=== PATIENT | male | born 1990 | race Caucasian/White ===

== ENCOUNTER 2021-12-31 16:02 | Observation (INO) | payer OTHER, SELFPAY ==
--- NOTE | ~2021-12-31 | CT_ITS ---
EXAMINATION: CT ABDOMEN AND PELVIS WITH CONTRAST CLINICAL INFORMATION: Diffuse abdominal pain. COMPARISON: None TECHNIQUE: Multidetector volumetric images were obtained from the superior aspect of the liver through the pubic symphysis following administration 100 mL of Omnipaque 350 intravenous contrast. Sagittal and coronal reformatted images were obtained on the technologist's workstation. Oral Contrast: No. This CT examination was performed using dose optimization techniques as appropriate, variously including the following: *Automated exposure control. *Adjustment of mA and/or kV according to patient size (this includes techniques or standardized protocols for targeted exams where dose is matched to indication/reason for exam; i.e. extremities or head). *Use of iterative reconstruction technique. DLP: 732 mGy-cm FINDINGS: LUNG BASES: The visualized lung bases are unremarkable. LIVER, GALLBLADDER, AND BILIARY TREE: The liver is normal in size, shape, and attenuation. No focal hepatic lesion or biliary ductal dilatation is present. The gallbladder is unremarkable with no evidence of radiopaque gallstones, gallbladder wall thickening, or obvious pericholecystic inflammatory changes. PANCREAS: Unremarkable. SPLEEN: Borderline enlarged, measuring 14.2 cm in diameter. ADRENAL GLANDS: Unremarkable. KIDNEYS AND URETERS: The kidneys are normal in size, shape, and attenuation. No hydronephrosis, hydroureter, or calculi seen. No perinephric stranding. BLADDER: Unremarkable. GASTROINTESTINAL TRACT: The appendix is dilated to a diameter of 1.8 cm with surrounding periappendiceal fat stranding, most consistent with acute appendicitis. There is adjacent wall thickening at the cecum, likely reactive in nature. No intraperitoneal free air or free fluid. No surrounding abscess. Stomach, small bowel, and colon are normal in caliber. ABDOMINAL WALL: No significant hernia is appreciated. LYMPH NODES: Normal. VASCULAR: Unremarkable. PELVIC VISCERA: Dystrophic central calcifications. No prostatomegaly. OSSEOUS STRUCTURES: Bilateral L5 pars defects, chronic. Minimal grade 1 anterolisthesis of L5 on S1. No acute osseous abnormalities. CT/CT abdomen pelvis w IV con IMPRESSION: 1. Acute uncomplicated appendicitis. 2. Borderline splenomegaly, potentially related to body habitus. This critical result was discussed by telephone with Thelma Love NP on 12/31/2021 at 6:45 PM
[2021-12-31 16:15] VITALS: BP 151/100; PULSE 81; RESP 18; TEMP 36.7; O2SAT 99; BMI 30.3
--- NOTE | 2021-12-31 16:29 | ED.ABDPAIN ---
HPI - Abdominal Pain General Chief Complaint: Abdominal Pain Stated Complaint: Abd pain Time Seen by Provider: 12/31/21 16:19 Source: patient Mode of arrival: ambulatory Limitations: no limitations History of Present Illness HPI narrative: 31 yo male healthy here with diffuse abdominal pain described as waves of pain and dull pain which is constant since last evening with nausea, chills. No vomiting, diarrhea. Last BM 2 days ago. Took miralax which he thinks made him feel worse. H/o inguinal hernia repair. Related Data Allergies Allergy/AdvReac Type Severity Reaction Status Date / Time Sulfa (Sulfonamide AdvReac Rash Verified 12/31/21 16:19 Antibiotics) Review of Systems Review of Systems Yes all other systems are reviewed and are negative Constitutional: Reports no additional constitutional complaints, Denies body ache(s), Reports chills, Denies fever(s), Denies headache(s) and Denies weakness Eyes: Reports no additional eye complaints and Denies change in vision Reports system reviewed and no additional complaints, except as documented, Denies dizziness, Denies headache(s), Denies nasal congestion, Denies nasal discharge and Denies neck pain Cardiovascular: Reports no additional cardiovascular complaints, Denies chest pain, Denies leg edema and Denies dyspnea Respiratory: Reports no additional respiratory complaints, Denies cough and Denies dyspnea Gastrointestinal: Reports no additional gastrointestinal complaints, Reports abdominal pain, Denies diarrhea, Reports nausea and Denies vomiting Genitourinary: Denies urinary incontinence Musculoskeletal: Reports no additional musculoskeletal complaints, Denies back pain, Denies arthralgias, Denies joint swelling, Denies neck pain, Denies numbness and Denies tingling Skin/Breast: Reports system reviewed and no additional complaints, except as docu and Denies rash Reports system reviewed and no additional complaints, except as documented, Denies dizziness, Denies headache(s), Denies numbness, Denies tingling and Denies weakness [facility] Past Medical History Attestation statement: The following information was validated with the patient. Source: old records reviewed and nursing notes reviewed Social History Social History Advance Directives: No Advance Directives Information Provided: No Physical Exam ED Vital Signs: Vital Signs - 24 hr 12/31/21 16:15 Temperature 98.0 F Pulse Rate 81 Respiratory Rate 18 Blood Pressure 151/100 H Pulse Oximetry 99 Oxygen Delivery Method Room Air BMI result Body Mass Index 30.3 Const General: cooperative, healthy appearing and comfortable Orientation/consciousness: patient oriented x3 Limitations: no limitations HENMT Head: Yes normal to inspection Ears: hearing grossly normal bilaterally Eyes General: appearance normal, both eyes and all related structures Pupils: Equal, round and reactive pupils present Neck Neck: Yes normal visual inspection, Yes full ROM and Yes no lymphadenopathy Chest Chest palpation & inspection: normal inspection of the chest Resp Effort & Inspection: normal respiratory effort Auscultation: clear to auscultation bilaterally Cardio Rate: regular rate Rhythm: regular rhythm Peripheral pulses: Peripheral pulses 2+ throughout GI Inspection: Yes normal to inspection Palpation (GI): Tenderness to palpation present (GI) (diffuse AP w/ rebound in RLQ) and Guarding due to palpation present (GI) Auscultation: normal bowel sounds General: Yes no CVA tenderness Back/Spine/Pelvis Back: no CVA tenderness Thoracic/Lumbar Spine: thoracic and lumbar spine normal to inspection Skin General skin exam: no rashes or lesions noted Neuro General: patient oriented x3 and moves all extremities Cranial nerves: Yes Equal, round and reactive pupils present Cognition (Neuro): normal cognition Gait exam (Neuro): Normal gait present Extrem General: Yes normal to inspection Course Course Course Narrative: 1849-Call from radiology. CT c/w with acute appendicitis. At this time infection suspected. Blood cultures/lactic acid ordered. Antibiotics ordered. Last PO was sips of water 3pm. Had OJ at noon. Last food prior to midnight =t. Reevaluation(s) Reevaluation #1: 1900-Spoke to Dr Stewart from general surgery who accepted admission. Keep patient NPO until OR time determined. MDM - Abdominal Pain MDM Narrative Medical decision making narrative: 31 yo male here with diffuse AP, nausea, chills since last evening. Will need labs, UA, CT, COVID screen. Differential Diagnosis Differential diagnosis: Likely acute appendicitis, diverticulitis and gastroenteritis Medical Records Attestation: I reviewed the patient's medical records. Lab Data Attestation: I reviewed the patient's lab results. Result diagrams: 12/31/21 16:45 12/31/21 16:45 Labs: Lab Results 12/31/21 12/31/21 12/31/21 Range/Units 16:40 16:45 16:45 WBC 13.2 H (4.8-10.8) X10*3/uL RBC 5.14 (4.60-5.80) X10*6/uL Hgb 16.4 (14.0-18.0) g/dl Hct 44.5 (42.0-52.0) % MCV 86.6 (80.0-98.0) fL MCH 31.9 (27.0-33.0) pg MCHC 36.9 H (31.0-36.0) g/dl RDW 11.4 (11.0-16.0) % Plt Count 226 (160-400) X10*3/uL MPV 9.6 (9.4-12.4) fL Immature Gran % (Auto) 0.4 (0.0-0.4) % Neut % (Auto) 85.2 H (45-73) % Lymph % (Auto) 7.3 L (20-40) % [place] % (Auto) 5.8 (2-11) % Eos % (Auto) 0.8 (0-4) % Baso % (Auto) 0.5 (0-2) % Lymph # (Auto) 1.0 L (1.2-4.9) X10*3/uL [place] # (Auto) 0.8 (0.1-1.2) X10*3/uL Eos # (Auto) 0.1 (0.0-0.4) X10*3/uL Baso # (Auto) 0.1 (0.0-0.2) X10*3/uL Abs Immat Gran (auto) 0.05 H (0.00-0.03) X10*3/uL Absolute Neuts (auto) 11.3 H (2.0-8.3) x10*3/uL Absolute Nucleated RBC 0.000 (0.0-0.012) X10*3/uL Nucleated RBC % (auto) 0.0 (0.0-0.2) /100WBC Sodium 139 (135-145) mmol/L Potassium 3.6 (3.3-5.1) mmol/L Chloride 100 (96-108) mmol/L Carbon Dioxide 26 (22-29) mmol/L Anion Gap 17 (12-20) BUN 12 (9-16) mg/dL Creatinine 0.83 (0.5-1.4) mg/dL Estim Creat Clear Calc 163.5 Estimated GFR > 60 Random Glucose 104 (60-115) mg/dL Calcium 9.3 (8.4-10.2) mg/dL Total Bilirubin 1.5 H (0.0-1.0) mg/dL Direct Bilirubin 0.5 (0.0-0.5) mg/dL AST 37 (5-37) U/L ALT 78 H (0-40) U/L Alkaline Phosphatase 65 (39-117) U/L Total Protein 7.8 (6.5-8.0) g/dL Albumin 5.0 (3.5-5.0) g/dL Lipase 17 (8-78) U/L Urine Color Urine Appearance Urine pH (5.0-9.0) Ur Specific [place] (1.005-1.025) Urine Protein (Neg-Trace) mg/dL Urine Glucose (UA) (Negative) mg/dL Urine Ketones (Negative) mg/dL Urine Blood (Negative) Urine Nitrite (Negative) Ur Leukocyte Esterase (Negative) Urine RBC (0-2) /HPF Urine WBC (0-5) /HPF Ur Squamous Epith Cells (0-2) /HPF Urine Bacteria (None Seen) Hyaline Casts (0-2) /LPF COVID-19 (SHAY) Negative (Negative) COVID-19 Clin Com See Note 12/31/21 Range/Units 18:17 WBC (4.8-10.8) X10*3/uL RBC (4.60-5.80) X10*6/uL Hgb (14.0-18.0) g/dl Hct (42.0-52.0) % MCV (80.0-98.0) fL MCH (27.0-33.0) pg MCHC (31.0-36.0) g/dl RDW (11.0-16.0) % Plt Count (160-400) X10*3/uL MPV (9.4-12.4) fL Immature Gran % (Auto) (0.0-0.4) % Neut % (Auto) (45-73) % Lymph % (Auto) (20-40) % [place] % (Auto) (2-11) % Eos % (Auto) (0-4) % Baso % (Auto) (0-2) % Lymph # (Auto) (1.2-4.9) X10*3/uL [place] # (Auto) (0.1-1.2) X10*3/uL Eos # (Auto) (0.0-0.4) X10*3/uL Baso # (Auto) (0.0-0.2) X10*3/uL Abs Immat Gran (auto) (0.00-0.03) X10*3/uL Absolute Neuts (auto) (2.0-8.3) x10*3/uL Absolute Nucleated RBC (0.0-0.012) X10*3/uL Nucleated RBC % (auto) (0.0-0.2) /100WBC Sodium (135-145) mmol/L Potassium (3.3-5.1) mmol/L Chloride (96-108) mmol/L Carbon Dioxide (22-29) mmol/L Anion Gap (12-20) BUN (9-16) mg/dL Creatinine (0.5-1.4) mg/dL Estim Creat Clear Calc Estimated GFR Random Glucose (60-115) mg/dL Calcium (8.4-10.2) mg/dL Total Bilirubin (0.0-1.0) mg/dL Direct Bilirubin (0.0-0.5) mg/dL AST (5-37) U/L ALT (0-40) U/L Alkaline Phosphatase (39-117) U/L Total Protein (6.5-8.0) g/dL Albumin (3.5-5.0) g/dL Lipase (8-78) U/L Urine Color Yellow Urine Appearance Clear Urine pH 7.5 (5.0-9.0) Ur Specific [place] >= 1.030 H (1.005-1.025) Urine Protein Negative (Neg-Trace) mg/dL Urine Glucose (UA) Negative (Negative) mg/dL Urine Ketones Negative (Negative) mg/dL Urine Blood Negative (Negative) Urine Nitrite Negative (Negative) Ur Leukocyte Esterase Trace H (Negative) Urine RBC 0-2 (0-2) /HPF Urine WBC 0-5 (0-5) /HPF Ur Squamous Epith Cells 0-2 (0-2) /HPF Urine Bacteria None Seen (None Seen) Hyaline Casts 0-2 (0-2) /LPF COVID-19 (SHAY) (Negative) COVID-19 Clin Com Imaging Data CT scan - abdomen: Attestation: I personally reviewed and interpreted this imaging study as follows: Radiologist's impression: FINDINGS: LUNG BASES: The visualized lung bases are unremarkable.? LIVER, GALLBLADDER, AND BILIARY TREE: The liver is normal in size, shape, and attenuation. No focal hepatic lesion or biliary ductal dilatation is present. The gallbladder is unremarkable with no evidence of radiopaque gallstones, gallbladder wall thickening, or obvious pericholecystic inflammatory changes.? PANCREAS: Unremarkable.? SPLEEN: Borderline enlarged, measuring 14.2 cm in diameter.? ADRENAL GLANDS: Unremarkable.? KIDNEYS AND URETERS: The kidneys are normal in size, shape, and attenuation. No hydronephrosis, hydroureter, or calculi seen. No perinephric stranding. ? BLADDER: Unremarkable.? GASTROINTESTINAL TRACT: The appendix is dilated to a diameter of 1.8 cm with surrounding periappendiceal fat stranding, most consistent with acute appendicitis. There is adjacent wall thickening at the cecum, likely reactive in nature. No intraperitoneal free air or free fluid. No surrounding abscess. Stomach, small bowel, and colon are normal in caliber.? ABDOMINAL WALL: No significant hernia is appreciated.? LYMPH NODES: Normal. VASCULAR: Unremarkable. PELVIC VISCERA: Dystrophic central calcifications. No prostatomegaly.? OSSEOUS STRUCTURES: Bilateral L5 pars defects, chronic. Minimal grade 1 anterolisthesis of L5 on S1. No acute osseous abnormalities. CT/CT abdomen pelvis w IV con IMPRESSION: 1. Acute uncomplicated appendicitis. ? 2. Borderline splenomegaly, potentially related to body habitus. ? This critical result was discussed by telephone with Thelma Love NP on 12/31/2021 at 6:45 PM Discharge Plan Discharge Clinical Impression: Acute appendicitis Patient Disposition: Admitted As Inpatient
[2021-12-31] MEDS: Ketorolac Tromethamine 30 MG/ML VIAL IVPUSH (16:51)
[2021-12-31] MEDS: 0.9 % Sodium Chloride 1,000 ML 999 ML IV (16:51)
[2021-12-31] MEDS: ondansetron HCL 4 MG/2 ML VIAL IVPUSH (16:52)
[2021-12-31 16:53] LABS: MANUAL DIFF FLAG NO
[2021-12-31 16:55] LABS: Basophils Absolute Auto 0.1 X10*3/uL (0.0-0.2); Basophils Percent Auto 0.5 % (0-2); Eosinophils Absolute Auto 0.1 X10*3/uL (0.0-0.4); Eosinophils Percent Auto 0.8 % (0-4); Hematocrit 44.5 % (42.0-52.0); Hemoglobin 16.4 g/dl (14.0-18.0); Imm Gran Abs Auto 0.05 X10*3/uL (0.00-0.03); Imm Gran Pct Auto 0.4 % (0.0-0.4); Lymphocytes Percent Auto 7.3 % (20-40); Mean Corpuscular HGB Conc 36.9 g/dl (31.0-36.0); Mean Corpuscular Hemoglobin 31.9 pg (27.0-33.0); Mean Corpuscular Volume 86.6 fL (80.0-98.0); Mean Platelet Volume 9.6 fL (9.4-12.4); Monocytes Absolute Auto 0.8 X10*3/uL (0.1-1.2); Monocytes Percent Auto 5.8 % (2-11); Neutrophils Absolute Auto 11.3 x10*3/uL (2.0-8.3); Neutrophils Percent Auto 85.2 % (45-73); Platelet Count 226 X10*3/uL (160-400); Red Blood Count 5.14 X10*6/uL (4.60-5.80); Red Cell Distribution Width 11.4 % (11.0-16.0); White Blood Count 13.2 X10*3/uL (4.8-10.8)
[2021-12-31 17:07] LABS: COVID-19 Test Negative (Negative)
[2021-12-31 17:12] LABS: Alanine Aminotransferase 78 U/L (0-40); Alkaline Phosphatase 65 U/L (39-117); Anion Gap 17 (12-20); Aspartate Amino Transferase 37 U/L (5-37); Bilirubin Direct 0.5 mg/dL (0.0-0.5); Bilirubin Total 1.5 mg/dL (0.0-1.0); Blood Urea Nitrogen 12 mg/dL (9-16); Calcium 9.3 mg/dL (8.4-10.2); Carbon Dioxide 26 mmol/L (22-29); Chloride 100 mmol/L (96-108); Creatinine Clr Calc Pharmacy 163.5; Estimated Glomerular Filt Rate > 60; Glucose Random 104 mg/dL (60-115); Lipase 17 U/L (8-78); Potassium 3.6 mmol/L (3.3-5.1); Sodium 139 mmol/L (135-145); Total Protein 7.8 g/dL (6.5-8.0)
[2021-12-31] MEDS: iohexoL 350 MG/ML 100 ML INFUS..BTL IV (17:39)
--- NOTE | 2021-12-31 18:15 | PC.NURSE ---
OOB to BR. Reports improvement in pain
[2021-12-31 18:27] LABS: Appearance Urine Clear; Color Urine Yellow; Glucose Urine UA Negative (Negative); Leukocyte Esterase Urine Trace (Negative); Nitrite Urine Negative (Negative); PH 7.5 (5.0-9.0); Specific Gravity - Urine >= 1.030 (1.005-1.025); UMIC TRIGGER UACC YES; Urine Blood Negative (Negative); Urine Ketones Negative (Negative); Urine Protein Negative (Neg-Trace)
[2021-12-31 18:32] LABS: Bacteria Urine None Seen (None Seen); Hyaline Casts Urine 0-2 /LPF (0-2); RBC Urine 0-2 /HPF (0-2); Squamous Epithelial Cell Urine 0-2 /HPF (0-2); WBC Urine 0-5 /HPF (0-5)
--- NOTE | 2021-12-31 19:13 | PM.HPGS ---
History of Present Illness History of Present Illness Date of Service: 01/01/22 Chief complaint: acute appendicitis Narrative: Jai Fonseca is a 31 year old male who denies significant past medical history with 2 days of progressive abd pain that localized to the RLQ. He presented with a leukocytosis & CT A/P confirming acute appendicitis. Patient reports he is slightly better than it admission last night and denies any chest pain, difficulty breathing, shortness of breath. He notes a family history of multiple myeloma and his father but no GI malignancies. There is no family history of inflammatory bowel disease. The patient denies any chronic diarrhea issues. 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 Review of Systems Review of Systems: Yes all other systems are reviewed and are negative Constitutional: Constitutional: Reports as per [facility] Surgical History Surgical History H/O hernia repair Social History Social History Alcohol intake: current Alcohol intake frequency: a few times a week Alcohol type: beer and other Patient Tobacco Use Status: Never used Tobacco Use of substances other than those prescribed or required for medical reasons: No Advance Directives: No Advance Directives Information Provided: No Meds Allergies Allergy/AdvReac Type Severity Reaction Status Date / Time Sulfa (Sulfonamide AdvReac Rash Verified 12/31/21 16:19 Antibiotics) Active Medications: Current Medications Piperacillin Sod/Tazobactam (Sod 3.375 gm/ Sodium Chloride) 50 mls @ 100 mls/hr IV ONCE ONE Stop: 12/31/21 19:16 Pharmacy Consult (Consult Rx Perform Med Rec) 1 each MISCELLANE ONCE PRN PRN Reason: Consult order Home Medications Medication Instructions Recorded Confirmed Last Taken Type No Known Home Meds 12/31/21 12/31/21 Unknown History Physical Exam Vital Signs: Vital Signs: Last Vital Signs Temp 98.0 F 12/31/21 16:15 Pulse 81 12/31/21 16:15 Resp 18 12/31/21 16:15 BP 151/100 H 12/31/21 16:15 Pulse Ox 99 12/31/21 16:15 O2 Del Method 12/31/21 16:15 BMI result Body Mass Index 30.3 The patient is non-toxic & in good spirits NC/AT, PERRLA, EOMI Mood, affect & judgment all appear appropriate Sclera anicteric conjunctiva pink and moist Oropharynx is clear with no aphthous ulcers, Mallampati class 2, mucous membranes moist Neck is supple with no masses, adenopathy or bruits Thyroid is nontender and free of dominant masses Heart is regular, normal S1-S2 no rubs or murmurs Lungs are clear and equal anteriorly with no audible wheezing, rubs or dullness to percussion No CVA tenderness present Abdomen is overweight with no demonstrable hernias. Right lower quadrant pain with peritoneal irritation to percussion is noted at McBurney's point. Hypoactive bowel sounds are present. His abdomen is not distended. No HSM, rebound, rigidity, guarding, masses or bruits are present. Rectal exam is deferred Skin has good turgor and is free of rashes Extremities free of cyanosis clubbing edema Results Results Labs: Short CBC 12/31/21 Range/Units 16:45 WBC 13.2 H (4.8-10.8) X10*3/uL Hgb 16.4 (14.0-18.0) g/dl Hct 44.5 (42.0-52.0) % Plt Count 226 (160-400) X10*3/uL BMP 12/31/21 16:45 Sodium 139 Potassium 3.6 Chloride 100 Carbon Dioxide 26 BUN 12 Creatinine 0.83 Calcium 9.3 Liver Function 12/31/21 Range/Units 16:45 Total Bilirubin 1.5 H (0.0-1.0) mg/dL Direct Bilirubin 0.5 (0.0-0.5) mg/dL AST 37 (5-37) U/L ALT 78 H (0-40) U/L Alkaline Phosphatase 65 (39-117) U/L Albumin 5.0 (3.5-5.0) g/dL Urine 12/31/21 Range/Units 18:17 Urine Color Yellow Urine Appearance Clear Urine pH 7.5 (5.0-9.0) Ur Specific [place] >= 1.030 H (1.005-1.025) Urine Protein Negative (Neg-Trace) mg/dL Urine Glucose (UA) Negative (Negative) mg/dL Assessment and Plan (1) Acute appendicitis: Status: Acute Plan NPO Zosyn IVF For lap appy 01/01/[address] Stewart with questions 01/01/2022 0817 I reviewed options with the patient including medical management and antibiotics versus laparoscopic or open appendectomy. I also reviewed activity restrictions regarding work and he noted that these would not be an issue. I reviewed the inherent risks to a laparoscopic or open appendectomy which include, but are not limited to: Bleeding, infection, need for open surgery, possibility of unexpected pathology such as a normal pathology or rare tumors, need for another procedure in the event of a complication and activity restrictions for 1 month. The patient seemed understand his options and would like to proceed. Continue NPO and IV fluid. Continue Zosyn. Continue subcu heparin, void bladder tongue carrier to OR, sequential compression stocking. Tentatively, OR as scheduled for 1300 today. Quality Stroke Does the patient have a stroke diagnosis?: No VTE Prior VTE?: No VTE Risk Level:: Surgical - low VTE Device Contraindication: N/A - Device Ordered VTE Drug Contraindication: N/A - Med Ordered Procedures Date of Service Date of Service: 01/01/22
[2021-12-31 19:19] VITALS: BP 150/92; PULSE 83; RESP 18; TEMP 36.7; O2SAT 99
[2021-12-31] MEDS: Piperacillin Sodium/Tazobactam 3.375 GM in 0.9 % Sodium Chloride 50 ML IV (19:29)
--- NOTE | 2021-12-31 19:29 | PC.NURSE ---
Blood cultures and repeat lactate obtained. Pt understands plan for OR and the need to be NPO. Antibiotic infusing.
[2021-12-31 20:04] LABS: Lactic Acid 2.4 mmol/L (0.5-2.0)
--- NOTE | 2021-12-31 20:08 | PHA.MEDREC ---
med rec complete, pt not on any medications currently, used to take sertraline but has been off this for about 3 months Pharmacy Consult ? Medication Reconciliation Pharmacy has completed the medication reconciliation.
--- NOTE | 2021-12-31 20:29 | PC.NURSE ---
patient a&ox3, c/o mild 3/10 abd pain, pt states he doesnt need pain medication at this time, pt instructed to ring call mercedes if he needs anything, vss, ivf started per order, will continue to monitor
[2021-12-31] MEDS: Lactated Ringers 1,000 ML 100 ML IVCONT (20:30)
--- NOTE | 2021-12-31 20:32 | PC.NURSE ---
ed provider okd to hold ns as hospitalist ordered lr
[2021-12-31 21:30] LABS: Reflex Lactate? Lactic Acid Added
[2021-12-31 23:02] LABS: ~Lactic Acid-LAB USE ONLY 0.8 mmol/L (0.5-2.0)
[2022-01-01] VITALS (8 sets, daily range): BP systolic 125–152; BP diastolic 72–89; PULSE 55–82; RESP 15–16; TEMP 36.5–37; O2SAT 95–98
[2022-01-01] MEDS: HYDROmorphone HCl 1 MG/ML SYRINGE 0.5 MG IVPUSH ×2 (00:15→08:00)
[2022-01-01] MEDS: ondansetron HCL 4 MG/2 ML VIAL IVPUSH (00:15)
[2022-01-01] MEDS: Piperacillin Sodium/Tazobactam 3.375 GM in 0.9 % Sodium Chloride 50 ML IV ×2 (02:29→09:11)
[2022-01-01] MEDS: 0.9 % Sodium Chloride Flush 3 ML SYRINGE IVFLUSH ×2 (02:30→07:44)
[2022-01-01] MEDS: Heparin Sodium,Porcine 5,000 UNIT/ML VIAL 5000 UNIT SUBCUT (08:01)
--- NOTE | 2022-01-01 08:58 | W.PM.OPN ---
Operative Note Operative Note Date of Service: 01/01/22 Narrative: Preop diagnosis: [Acute appendicitis] Postop diagnosis: Same Procedure: Laparoscopic appendectomy Surgeon: Brandon Stewart MD Assist: None Anesthesia: General endotracheal; ropivacaine, 0.5% Estimated blood loss: [3cc] Specimen: 1) peritoneal fluid for Gram stain & culture; 2) Appendix Intraoperative findings: [Acute appendicitis without obvious perforation but clear, bilious fluid was sent for culture] Indications: The patient is a 31 year gentleman with no significant past medical history who presented with 2 days of abdominal pain, leukocytosis and a CT confirming acute appendicitis. Options were reviewed with the patient including non operative medical management with IV antibiotics. The inherent risks to surgery including bleeding, infection, need for open surgery, negative exploration, unexpected pathology or complications that could require another procedure reviewed and apparently understood. The patient seemed understand and wanted to proceed. Procedure: The patient was identified in the preoperative holding area and again in the operating room. An appropriate time-out was performed. 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 Sequential compression stockings were placed. The patient was induced in general endotracheal anesthesia administered with excellent effect. The abdomen was widely prepped and draped in the usual manner for surgery. Preemptive local was used at all trocar insertion sites. The abdomen was accessed using a Veress needle. Stab incision was made, Veress needle inserted without incident, an appropriate drop test performed and a pneumoperitoneum of 15 mmHg was obtained using carbon dioxide. Opening pressure was 6 mmHg. Next, the abdomen was accessed with a 30 degree/5 mm laparoscoped over Optiview trocar technique without incident. In examining the Veress needle, no evidence of injury was present. The remaining trocars were placed under direct laparoscopic vision with preemptive analgesia. The patient was then positioned in Trendelenburg, banked left. The appendix was identified and tracked down to the cecum. A window was made in the mesoappendix and the mesoappendix carefully dissected using the 5 mm LigaSure [place] tip. An Endo-SAHIL stapler, purple load, was placed across the appendiceal base on the cecum the and fired with good hemostasis and closure. The specimen was placed in an Endo-Catch bag and delivered through the 12 mm port in the left lower quadrant. Operative field was irrigated and inspected for hemostasis which was good. Patient was returned to neutral position, the abdomen deflated and the trocars removed. 12 mm fascia was closed with 0-Polysorb and skin closed with 4-0 Monocryl subcuticular sutures. The abdomen was washed and dried, Mastisol and Steri-Strips applied followed by Band-Aids. Patient tolerated the procedure well and was sent to the recovery in stable condition. All sponge instrument counts were correct. At the patient's request, I called his mother at [phone] to apprise her of the operation and postoperative plan. Her questions seemed to be satisfactorily answered.
--- NOTE | 2022-01-01 12:35 | MHC.CM.PN ---
met with pt in ed pt is independentno servcies will be needed at dc is [facility] vax x 2 has transport home
--- NOTE | 2022-01-01 14:34 | MHC.CM.PN ---
pt dcd home no skilled services ordered by
== END 2022-01-01 17:29 | disposition home or self-care (01) ==
LOC: HO.ED 18:57 → HO.EDOVER 19:24
PROVIDERS: Nurse Practitioner Family; Admitting Provider Surgery; Emergency Provider Emergency Medicine Emergency Medical Services; PCP Nurse Practitioner Family; Visit Provider Surgery
PROC: 0DTJ4ZZ Resection of Appendix, Percutaneous Endoscopic Approach (ICD-10-PCS; CPT 44970; principal; 2022-01-01 13:00)
DX: K35.80 Unspecified acute appendicitis (principal); R10.31 Right lower quadrant pain; D72.829 Elevated white blood cell count, unspecified; Z20.822 Contact with and (suspected) exposure to COVID-19; Z79.899 Other long term (current) drug therapy
CPT/HCPCS: 44970; 36415; 74177; 80048; 80076; 81001; 83605; 83690; 85025; 86850; 86900; 86901; 87040; 87070; 87073; 87205; 87635; 88304; 96365; 96366; 96375; 96376; 99285; J1170; J1885; J2250; J2405; J2543; J3010; Q9967